=== PATIENT | male | born 1985 | race Caucasian/White ===

== ENCOUNTER 2021-07-30 16:10 | Emergency (ER) | payer SELFPAY ==
[2021-07-30 16:21] VITALS: BP 120/70; PULSE 80; TEMP 98.5; BMI 29.5
== END 2021-07-30 17:38 | disposition home or self-care (01) ==
LOC: JER 16:10 → JERFT 16:10
DX: R07.9 Chest pain, unspecified (principal)
CPT/HCPCS: 71046-TC-FY; 93005; 93010; 99285-25; C9803; U0003; U0005